=== PATIENT | male | born 1960 | race Caucasian/White ===

== ENCOUNTER 2018-02-22 06:22 | Day surgery (SDC) | payer BC, SELFPAY ==
[2018-02-22] VITALS (15 sets, daily range): BP systolic 91–160; BP diastolic 53–100; PULSE 47–73; RESP 12–16; TEMP 35.8–36.6; O2SAT 90–100; BMI 23.8
--- NOTE | 2018-02-22 06:39 | PCM.HP.STD ---
Problem List (1) Personal history of colonic polyps Status: Acute History of Present Illness Date of Admission: 02/22/18 The patient is a 57 year old M personal history of colon polyps. In the year 2009 he had a colonoscopy with 2 polyps. He had a follow-up colonoscopy in 2011 no polyps. He now presents back for follow-up because of a personal history of colon polyps. He has had an intentional weight loss. He is enjoying a good quality of health. No bright red blood per rectum or melena. Family history is pertinent that his father from kidney cancer. The patient does not currently have any similar symptoms. Past Medical History Allergies No Known Allergies Allergy (Verified 02/20/18 15:36) Home Medications: Ambulatory Orders Medication Instructions Recorded Aspirin [Aspirin EC] 81 mg PO DAILY 02/20/18 Cholecalciferol (Vitamin D3) 5,000 unit PO QWEEK 02/20/18 [Vitamin D3] Glucosamine Sulf/Chondroitin A 1 each PO DAILY 02/20/18 [Glucosamine-Chondroitin Cap] Multivitamin [Multiple Vitamins] 1 each PO DAILY 02/20/18 Simvastatin 20 mg PO DAILY 02/20/18 Smoking Status: Never smoker Alcohol: Occasional Drugs: None Review of Systems Constitutional: Denies: Anorexia Cardiovascular: Denies: Chest Pain Respiratory: Denies: Cough Gastrointestinal: Denies: Abdominal Pain Genitourinary: Denies: Dysuria Psychiatric: Denies: Anxiety Endocrine: Reports: Change in Body Habitus - Intentional weight loss VTE Information - Inpt Only VTE Present on Admission: No Patient Problems: Active and Suspected Problems Personal history of colonic polyps (Acute) - Physical Exam General: Alert, Oriented x3, Cooperative, No apparent distress HEENT: Atraumatic Oral: Moist Mucosa Neck: Supple Lungs: Clear to auscultation Cardiovascular: Regular rate, Regular Rhythm Abdomen: Bowel Sounds Present, Soft, Non Tender Extremities: No clubbing Neurological: Cranial nerves II-XII grossly intact Assessment/Plan All Active Problems Personal history of colonic polyps (Acute) I am recommending a colonoscopy with possible biopsy or polypectomy is indicated. He has had an opportunity to ask and have questions answered. We will proceed as noted. Perico Arriola M.D., F.A.C.S.
--- NOTE | 2018-02-22 07:12 | OP.PCM_ITS ---
Problem List (1) Personal history of colonic polyps Status: Acute Report of Operation Date of Procedure: 02/22/18 Pre-Operative Diagnosis: Personal history of colon polyps Post-Operative Diagnosis: Severe descending and sigmoid diverticulosis with scattered pancolonic diverticulosis Surgery/Procedure Performed:: Colonoscopy Description of Surgical Findings:: Timeout and informed consent was obtained. 57-year-old gent was taken to the endoscopy suite. He was placed in a left lateral decubitus position. Throughout the procedure he received a total of 150 mg Demerol and 5 mg of Versed is intravenous sedation. Digital rectal exam performed. Normal anal tone. 2+ smooth prostate. No prostate masses. [employer] colonoscope was in the rectum advanced through a very tortuous sigmoid colon extensively involved with diverticulosis. The scope was then able to be advanced nicely past the splenic flexure through the transverse colon with transabdominal pressure was advanced to the cecum. Bowel prep was very good. The cecum ileocecal valve was nicely achieved. The scope was carefully withdrawn from the cecum ascending colon transverse colon. Scattered diverticulosis was noted. No mass lesions. The scope was carefully withdrawn through the descending and sigmoid colon. This was much more challenging. There was extensive diverticulosis of the descending and sigmoid colon. Did not see any signs of acute inflammation. The mucosa otherwise appeared normal. The scope was withdrawn to the rectum retroflexed and the anorectal verge inspected. This too was not remarkable. Excess fluid and air was aspirated free the procedure was completed with the patient tolerating it well. Impression Salgado colonic scattered diverticulosis with extensive diverticulosis of the descending and sigmoid colon. Previous colonoscopy 2011. Next colonoscopy recommended in 5 years because of a personal history of colon polyps. CC: Dr.Colin Kay Medications were given at 0645. The procedure was started at 0649. The cecum was reached at 0658. The procedure was completed at 0704. Perico Arriola M.D., F.A.C.S. Type of Anesthesia:: IV Sedation
== END 2018-02-22 09:29 | disposition home or self-care (01) ==
LOC: EN 06:23 → AC 06:24 → ACINP 09:27
PROVIDERS: Visit Provider Surgery
PROC: 0DJD8ZZ Inspection of Lower Intestinal Tract, Via Natural or Artificial Opening Endoscopic (ICD-10-PCS; CPT 45378; principal; 2018-02-22 07:10)
DX: K57.30 Diverticulosis of large intestine without perforation or abscess without bleeding (principal); Z86.010 Personal history of colon polyps; Z80.51 Family history of malignant neoplasm of kidney
CPT/HCPCS: 45378; 99152; 99153; J7120

== ENCOUNTER 2023-03-16 08:13 | Day surgery (SDC) | payer BC, SELFPAY ==
[2023-03-16] VITALS (8 sets, daily range): BP systolic 93–128; BP diastolic 52–77; PULSE 57–69; RESP 16–18; TEMP 36.1–36.5; O2SAT 93–100; BMI 23.5
[2023-03-16] MEDS: Lactated Ringers 1,000 ML 15 ML IV (08:47)
--- NOTE | 2023-03-16 08:49 | PCM.HP.STD ---
HPI - General General Date of Admission: 02/24/20 Date of Service: 03/16/23 Chief Complaint: Surveillance for colon cancer HPI Narrative EDWARD CHANG, is a 62 M who presents for surveillance colonoscopy. He has had a previous history of a colon polyp. Most recent colonoscopy was February 2018. He has no symptoms. He presents via open access today. [facility] Medical History (Updated 03/15/23 @ 08:41 by Alissa Pierre) Alcohol use Arthritis Back pain Cancer Diverticulosis High cholesterol History of stress test HTN (hypertension) Hyperlipidemia Wears contact lenses Wears glasses Home Medications Cholecalciferol (Vitamin D3) [Vitamin D3] 5,000 unit PO QWEEK 02/20/18 [History Last Taken Unknown] glucosamine sulf dipotassium Cl 250 mg-chondroitin sulf 200 mg capsule 1 ea PO BID 02/20/18 [History Last Taken Unknown] simvastatin 20 mg tablet 20 mg PO DAILY 02/20/18 [History Last Taken Unknown] amlodipine 5 mg tablet 5 mg PO DAILY 02/26/23 [History Last Taken Unknown] Allergy/AdvReac Type Severity Reaction Status Date / Time No Known Allergies Allergy Verified 03/16/23 08:35 Family History (Updated 01/25/23 @ 11:51 by Humera Harrell) Father Cancer of kidney Surgical History (Updated 03/15/23 @ 08:41 by Alissa Pierre) Hx of colonoscopy Social History (Updated 01/25/23 @ 11:51 by Humera Harrell) current occupational status: retired Smoking Status: Never smoker ROS Constitutional Constitutional: Reports systems reviewed and no addt'l complaints, except as documented Cardiovascular Cardiovascular: Denies chest pain Respiratory/Chest Respiratory/Chest: Denies shortness of breath at rest Gastrointestinal Gastrointestinal: Denies abdominal pain, change in bowel habits, hematochezia or melena Vital Signs Vital Signs Vital Signs: 03/16/23 08:38 03/16/23 08:39 Temperature 96.9 F L Temperature Source Temporal Pulse Rate 69 Respiratory Rate 18 Respiratory Pattern Normal Blood Pressure 128/77 H Blood Pressure Mean 94 Blood Pressure Source Monitor Blood Pressure Position Semi-Fowlers Blood Pressure Location Right Arm Pulse Ox 100 Oxygen Delivery Method Room Air Weight Weight: 172 lb Body Mass Index (BMI) 23.5 Physical Exam Const alert, oriented x3 and no apparent distress General Appearance: cooperative and comfortable Eyes General Eye: normal appearance of both eyes Neck General: normal visual inspection Chest inspection of chest normal Resp Effort and Inspection: able to speak in complete sentences and symmetric chest movement Auscultation: clear to auscultation bilaterally Cardio regular rate and regular rhythm GI soft to palpation, non-tender and non-distended Extremity no calf tenderness Neuro oriented x3 Psych thought process normal Assessment & Plan Assessment/Plan (1) Personal history of colonic polyps: PLAN: 62-year-old gentleman presents via open access today for surveillance colonoscopy secondary to a personal history of colon polyps. He is aware of the technique, benefit, risk, alternatives. He has had an opportunity to ask and have questions answered. We will proceed as noted. Perico Arriola M.D., F.A.C.S.
--- NOTE | 2023-03-16 10:07 | OP.CCLET_ITS ---
03/16/2023 Out Of Town Doctor Re : Colonoscopy procedure for Anson Lopez Dear [facility] Doctor This procedure was performed on Thursday, March 16, 2023. My impressions and recommendations are as follows: Impressions : - Diverticulosis in the sigmoid colon and in the descending colon. - The examination was otherwise normal. - No specimens collected. Recommendations : - Discharge patient to home. - Resume previous diet. - Continue present medications. - Repeat colonoscopy in 5 years for surveillance. My findings are described in the full procedure note, which is enclosed. If I can be of further assistance, please feel free to contact me at Doctor phone number(s): Work: . Sincerely, Perico Arriola MD 03/16/2023 10:06:54 AM This report has been signed electronically.
--- NOTE | 2023-03-16 10:07 | OP.COLON_ITS ---
Patient Name: Anson Lopez Procedure Date: 03/16/2023 9:35 AM Date of : 1960 Age: 62 Procedure: Colonoscopy Indications: High risk colon cancer surveillance: Personal history of colonic polyps Providers: Perico Arriola MD Medicines: See the Anesthesia note for documentation of the administered medications Patient Profile: Last Colonoscopy: February 2018. Complications: No immediate complications. Procedure: Pre-Anesthesia Assessment: - Prior to the procedure, a History and Physical was performed, and patient medications and allergies were reviewed. The patient's tolerance of previous anesthesia was also reviewed. The risks and benefits of the procedure and the sedation options and risks were discussed with the patient. All questions were answered, and informed consent was obtained. Prior Anticoagulants: The patient has taken no anticoagulant or antiplatelet agents. ASA Grade Assessment: II - A patient with mild systemic disease. After reviewing the risks and benefits, the patient was deemed in satisfactory condition to undergo the procedure. After I obtained informed consent, the scope was passed under direct vision. Throughout the procedure, the patient's blood pressure, pulse, and oxygen saturations were monitored continuously. The colonoscope was introduced through the anus and advanced to the cecum, identified by appendiceal orifice and ileocecal valve. The colonoscopy was somewhat difficult due to multiple diverticula in the colon. The patient tolerated the procedure well. The quality of the bowel preparation was good. The ileocecal valve and the appendiceal orifice were photographed. Scope In: 9:49:44 AM Scope Withdrawal Time 0 hours 7 minutes 17 seconds Scope Out: 10:02:36 AM Total Procedure Duration Time 0 hours 12 minutes 52 seconds Findings: The perianal and digital rectal examinations were normal. Multiple diverticula were found in the sigmoid colon and descending colon. The exam was otherwise without abnormality. Impression: - Diverticulosis in the sigmoid colon and in the descending colon. - The examination was otherwise normal. - No specimens collected. Recommendation: - Discharge patient to home. - Resume previous diet. - Continue present medications. - Repeat colonoscopy in 5 years for surveillance. Procedure Code(s): --- Professional --- 34089, Colonoscopy, flexible; diagnostic, including collection of specimen(s) by brushing or washing, when performed (separate procedure) Diagnosis Code(s): --- Professional --- Z86.010, Personal history of colonic polyps K57.30, Diverticulosis of large intestine without perforation or abscess without bleeding CPT copyright 2021 [employer]. All rights reserved. The codes documented in this report are preliminary and upon central supply aide review may be revised to meet current compliance requirements. Perico Arriola MD 03/16/2023 10:06:54 AM This report has been signed electronically. Number of Addenda: 0 Note Initiated On: 03/16/2023 9:35 AM
== END 2023-03-16 11:03 | disposition home or self-care (01) ==
LOC: EN 08:15 → AC 08:16
PROVIDERS: Referring Provider Surgery; Visit Provider Surgery
PROC: 0DJD8ZZ Inspection of Lower Intestinal Tract, Via Natural or Artificial Opening Endoscopic (ICD-10-PCS; CPT 45378; principal; 2023-03-16 09:10)
DX: Z12.11 Encounter for screening for malignant neoplasm of colon (principal); K57.30 Diverticulosis of large intestine without perforation or abscess without bleeding; E78.00 Pure hypercholesterolemia, unspecified; Z86.010 Personal history of colon polyps; I10 Essential (primary) hypertension; Z79.899 Other long term (current) drug therapy
CPT/HCPCS: 45378; J7120; J2405